=== PATIENT | male | born 1980 | race Two or more races ===

== ENCOUNTER 2018-09-05 12:37 | Emergency (ER) | payer SELFPAY ==
[~2018-09-05] VITALS: Ht 175.3 cm; Wt 81.6 kg
--- NOTE | 2018-09-05 12:47 | NUR ---
ED Nurse Note: PT WALKED IN TO ER TODAY FROM HOME. AOX4. PT C/O LEFT FOREARM PAIN, 10/10 AFTER ACCIDENTALLY PUNCTURING HIS ARM WITH A DRILL. ON ASSESSMENT, PT PRESENTS WITH A PUNCTURE WOUND TO LEFT FOREARM. SWELLING NOTED BUT NOT ACTIVE BLEEDING. STRONG RADIAL PULSE, CAP REFILL <3 SECONDS, CIRCULATION AND SENSATION INTACT, FULL ROM OF DIGITS AND EXTREMITY.
[2018-09-05 12:48] VITALS: BP 138/76
--- NOTE | 2018-09-05 12:52 | Emergency Room Report ---
History of Present Illness General Chief Complaint: Upper Extremity Injury Source: Patient Present Illness HPI While using a power drill patient reports that he accidentally drilled into his left forearm This happened just prior to arrival Patient reports that the instrument is used for drilling and a screw however as he was lowering the instrument It accidentally went off and injured his left forearm He has pain and discomfort to the local site also some tenderness distally on the palmar aspect of the forearm Denies any elbow pain denies any other trauma Patient describes neuropathy just above and below the injured area as well Allergies: Coded Allergies: No Known Allergies (Unverified , 09/05/18) Patient History Past Medical History: see triage record Pertinent Family History: none Reviewed Nursing Documentation: PMH: Agreed; PSxH: Agreed Nursing Documentation-PMH Past Medical History: No Stated History Review of Systems All Other Systems: negative except mentioned in HPI Physical Exam Vital Signs Date Time Temp Pulse Resp B/P (MAP) Pulse Ox O2 Delivery O2 Flow Rate FiO2 09/05/18 12:45 98.4 110 18 156/83 (107) 96 Room Air Sp02 EP Interpretation: reviewed, normal General Appearance: no apparent distress Head: normocephalic, atraumatic Eyes: bilateral eye PERRL, bilateral eye EOMI ENT: hearing grossly normal, normal pharynx Neck: supple Respiratory: lungs clear, no respiratory distress, no retraction Cardiovascular #1: regular rate, rhythm Gastrointestinal: non tender, soft Musculoskeletal: other - Puncture wound mid radial aspect of the left forearm no obvious expanding hematoma,, there is some minimal swelling around the region however no obvious compartment syndrome appearance able to flex all digits and extend Neurologic: alert, oriented x3 Skin: other - As above Lymphatic: no adenopathy Procedures Splinting Splinting : Consent: Verbal Location: Forearm Pre-Made Type: velcro Splint: volar Pre-Proc Neuro Vasc Exam: normal Post-Proc Neuro Vasc Exam: normal Patient Tolerated: Well Complications: None Medical Decision Making Diagnostic Impression: Primary Impression: Puncture wound ER Course Given the initial history and presentation multiple differentials and consideration including but not limited to compartment syndrome, retained foreign body Acute fractures, venous arterial//nerve injury The area on the forehead is reexamined several times does not show any evidence of expanding hematoma He actually himself feels that the initial swelling is improved from previous X-ray imaging does not show any acute bony abnormality Patient continues to feel improved initial antibiotics and pain medication provided on repeat evaluation patient continues to do well I do not feel that this area is An area that would be appropriate for suturing will have secondarily healing area was irrigated and cleansed A splint is applied for decreasing movement And patient requires close follow-up Other X-Ray Diagnostic Results Other X-Ray Diagnostic Results : X-Ray ordered: Left forearm # of Views/Limited Vs Complete: 2 View Indication: Pain EP Interpretation: Yes Interpretation: no dislocation, no fractures, other - soft Tissue changes with gas bubble Impression: Other - Soft tissue changes with gas bubble indicative of tissue puncture wound Last Vital Signs Date Time Temp Pulse Resp B/P (MAP) Pulse Ox O2 Delivery O2 Flow Rate FiO2 09/05/18 12:45 98.4 110 18 156/83 (107) 96 Room Air Status: improved Disposition: HOME, SELF-CARE Condition: Improved Scripts Acetaminophen With Codeine (T#3) (TYLENOL #3 TAB*) Y Tab 1 TAB ORAL Q8H PRN for For Pain, #12 TAB Prov: Marc Sherman DO 09/05/18 Amoxicillin/Potassium Clav 875-125* (AUGMENTIN 875-125 TABLET*) 1 Each Tablet 1 TAB ORAL TWICE A DAY, #14 TAB Prov: Marc Sherman DO 09/05/18 Ibuprofen* (MOTRIN*) 600 Mg Tablet 600 MG ORAL Q8H PRN for For Pain, #20 TAB 0 Refills Prov: Marc Sherman DO 09/05/18 Additional Instructions: Patient is provided with the discharge instructions notified to follow up with primary doctor in the next 2-3 days otherwise return to the er with any worsening symptoms. Please note that this report is being documented using [employer] technology. This can lead to erroneous entry secondary to incorrect interpretation by the dictating instrument. Marc Sherman DO Sep 05, 2018 12:52
--- NOTE | 2018-09-05 12:59 | NUR ---
ED Nurse Note: x-ray at bedside.
[2018-09-05] MEDS ORDERED: Tetanus/Diptheria/Pertussis IM ONE (13:00)
[2018-09-05] MEDS ORDERED: Morphine Sulfate 4mg/ml Inj (IV USE ONLY) IVP ONE (13:00)
[2018-09-05] MEDS ORDERED: Ketorolac 30mg Inj IV ONE (13:00)
[2018-09-05] MEDS ORDERED: ceFAZolin 1gm/50ml Premix 50 ML IV ONE (13:00)
--- NOTE | 2018-09-05 13:01 | NUR ---
Dorothea beth in EDM - 09/05/18 at 1301 by [facility] ED Nurse Note: XRAY AT BEDSIDE.
--- NOTE | 2018-09-05 13:13 | NUR ---
ED Nurse Note: ERMD at bedside discussing treatment plan with pt.
[2018-09-05] MEDS ORDERED: Bacitracin Oint UD TOPIC ONE (13:22)
[2018-09-05] MEDS ORDERED: AUGMENTIN 875-1 EAC1 ORAL (13:32)
[2018-09-05] MEDS ORDERED: IBUPROFEN600 MG ORAL (13:32)
[2018-09-05] MEDS ORDERED: ACETAMINOPHEN-1 EAC1 ORAL (13:32)
[2018-09-05 13:43] VITALS: BP 126/72
--- NOTE | 2018-09-05 13:43 | NUR ---
ED Nurse Note: PT LAYING PEACEFULLY IN BED IN NAD. AOX4. PRESCRIPTIONS AND DISCHARGE PAPERWORK EXPLAINED TO PT. PT VERBALIZES UNDERSTANDING AND ALL QUESTIONS ANSWERED. PRESCRIPTIONS AND DISCHARGE PAPERWORK GIVEN TO PT, IV AND ID WRISTBAND REMOVED. PT WALKED OUT OF ER WITH STEADY GAIT AND ALL BELONGINGS.
--- NOTE | 2018-09-06 10:32 | Diagnostic Imaging Report ---
Indications: Pain, trauma Technique: Two views of the left forearm Comparison: None Findings: No definite acute fractures or dislocations. Corticated calcification projected in the posterior wrist may be developmental or reflect prior trauma Impression: No acute bony trauma
== END 2018-09-05 13:44 | disposition home or self-care (01) ==
LOC: EMR 13:05
DX: S51.832A Puncture wound without foreign body of left forearm, initial encounter (principal); W31.9XXA Contact with unspecified machinery, initial encounter; Y92.9 Unspecified place or not applicable; Z23 Encounter for immunization
CPT/HCPCS: 29125; 73090; 90471; 90715; 96365; 96375; 99283; J0690; J1885; J2270; J2405